=== PATIENT | male | born 1995 | race Caucasian/White ===

== ENCOUNTER 2020-08-05 13:30 | Emergency (ER) | payer OTHER ==
[~2020-08-05 13:30] MED LIST: CYCLOBENZAPRINE10 MG PO; NAPROSYN500 MG PO
[2020-08-05] MEDS ORDERED: MEDROL DOSEPAK 24 MG PO (18:27)
[2020-08-05] MEDS ORDERED: ZYRTEC10 MG PO (18:27)
[2020-08-05] MEDS ORDERED: FLONASE 0.05% N16 GM (18:27)
== END 2020-08-05 18:57 | disposition home or self-care (01) ==
LOC: ER1 13:30
DX: J06.9 Acute upper respiratory infection, unspecified (principal); Z86.69 Personal history of other diseases of the nervous system and sense organs; Z20.828 Contact with and (suspected) exposure to other viral communicable diseases
CPT/HCPCS: 87081; 87880; 99284; U0002

== ENCOUNTER 2020-09-21 16:34 | Observation (INO) | payer OTHER ==
[~2020-09-21] VITALS: Ht 182.9 cm; Wt 124.7 kg
[~2020-09-21 16:34] MED LIST changes: +FLONASE 0.05% N16 GM; +MEDROL DOSEPAK 24 MG PO; +ZYRTEC10 MG PO
[2020-09-21 17:27] LABS: HEMOGLOBIN 15.5 gm/dl (14.0-17.5); RED BLOOD COUNT 4.81 M/UL (4.20-5.50); WHITE BLOOD COUNT 21.7 K/UL (4.5-11.0)
[2020-09-21 17:57] LABS: BUN/CREATININE RATIO 22 (0-10)
[2020-09-22 03:48] LABS: HEMOGLOBIN 14.6 gm/dl (14.0-17.5); RED BLOOD COUNT 4.65 M/UL (4.20-5.50); WHITE BLOOD COUNT 17.6 K/UL (4.5-11.0)
[2020-09-22 04:02] LABS: BUN/CREATININE RATIO 16 (0-10)
[2020-09-22] MEDS ORDERED: ROXICODONE5 MG PO (16:18)
--- NOTE | 2020-09-22 21:12 | NUR ---
pt experiencing subconjuctival hemmorrhage in [place]. also notified that heart rate was running in the 120s. recieved no new orders. will continue to monitor.
== END 2020-09-23 14:53 | disposition home or self-care (01) ==
LOC: ER1 16:34 → MED SURG 4 22:28 → CDU 22:28 → MED SURG 4 22:28
PROVIDERS: Physician Assistant; ADMIT Surgery
DX: K35.80 Unspecified acute appendicitis (principal); E78.5 Hyperlipidemia, unspecified; K21.9 Gastro-esophageal reflux disease without esophagitis; F17.220 Nicotine dependence, chewing tobacco, uncomplicated; E66.01 Morbid (severe) obesity due to excess calories; Z20.822 Contact with and (suspected) exposure to COVID-19
CPT/HCPCS: 36415; 80053; 81001; 82150; 83605; 83690; 85025; 87040; 96365; 96367; 96372; 96375; 96376; 99285; G0378; J1100; J1170; J1650; J2001; J2250; J2270; J2405; J2543; J2704; J2710; J3010; J7120; Q9967; U0002